=== PATIENT | female | born 1980 | race Caucasian/White ===

== ENCOUNTER 2021-05-22 07:57 | Emergency (ER) | payer OTHER ==
[2021-05-22 08:05] VITALS: BP 112/78; PULSE 76; TEMP 98.1; BMI 23.6
[2021-05-22] MEDS ORDERED: IBUPROFEN 400 MG TABLET (FP) PO ONE ×2 (08:38→08:41)
== END 2021-05-22 08:50 | disposition home or self-care (01) ==
LOC: JERFT 07:57
DX: H92.01 Otalgia, right ear (principal); M26.621 Arthralgia of right temporomandibular joint
CPT/HCPCS: 99283-25